=== PATIENT | female | born 2000 | race Caucasian/White ===

== ENCOUNTER 2019-10-25 15:17 | Emergency (ER) | payer OTHER ==
--- NOTE | 2019-10-25 15:35 | ED ---
Abdominal Pain/Female - HPI Summary HPI Summary: Patient complains of lower abdominal pain starting this morning at 10 AM, described as constant with spikes, radiating to lower back. Currently rated 5/ 10. Patient also complains of vaginal bleeding with use of 4 tampons since this morning. LMP 3 weeks ago, states he has usually bleeds minimally with her periods. Positive OCP. Negative test and negative urine at urgent care, was sent to the ED for further evaluation. Associated symptoms are mild nausea and some loose stool. Denies fever, cough, sore throat, CP, SOB, vomiting, change in urine, vaginal discharge or pain. Medical history is none. Abdominal surgical history is none. Tylenol taken at 10:30 AM with no relief of symptoms. - History of Current Complaint Chief Complaint: EDAbdPain Stated Complaint: ABD PAIN/CRAMPING PER PT Time Seen by Provider: 10/25/19 15:33 Hx Obtained From: Patient Onset/Duration: Sudden Onset, Lasting Hours Timing: Constant Severity Initially: Moderate Severity Currently: Moderate Pain Intensity: 6 Pain Scale Used: 0-10 Numeric Location: Suprapubic Radiates: Yes Radiates to: Back Character: Sharp, Cramping Aggravating Factor(s): Nothing Alleviating Factor(s): Nothing Associated Signs and Symptoms: Positive: Negative Allergies/Adverse Reactions: Allergies Allergy/AdvReac Type Severity Reaction Status Date / Time legumes Allergy Anaphylatic Verified 10/25/19 15:24 Shock nut - unspecified Allergy Anaphylatic Verified 10/25/19 15:24 Shock sesame seed Allergy Hives Verified 10/25/19 15:24 shellfish derived Allergy Hives Verified 10/25/19 15:24 Home Medications: Home Medications Norethindrone-E.estradiol-Iron [Microgestin Fe 1-20 mg-Mcg] 1 tab PO DAILY 10/25 [History Confirmed 10/25/19] busPIRone TAB* [Buspar TAB *] 15 mg PO DAILY 10/25/19 [History Confirmed ] PMH/Surg Hx/FS Hx/Imm Hx Endocrine/Hematology History: Denies: Hx Anticoagulant Therapy Cardiovascular History: Denies: Hx Pacemaker/ICD History: Denies: Hx Dialysis Sensory History: Denies: Hx Eye Prosthesis Opthamlomology History: Denies: Hx Legally Blind EENT History: Denies: Hx Deafness Neurological History: Denies: Hx Dementia Infectious Disease History: No Infectious Disease History: Denies: Traveled Outside the [place] in Last 30 Days - Family History Known Family History: Positive: Non-Contributory - Social History Alcohol Use: Occasionally Hx Substance Use: No Hx Tobacco Use: No Review of Systems Constitutional: Negative Eyes: Negative ENT: Negative Cardiovascular: Negative Respiratory: Negative Positive: Abdominal Pain, Nausea Genitourinary: Negative Musculoskeletal: Negative Skin: Negative Neurological: Negative Psychological: Normal All Other Systems Reviewed And Are Negative: Yes Physical Exam - Summary Physical Exam Summary: Abdomen soft nontender. Triage Information Reviewed: Yes Vital Signs On Initial Exam: Initial Vitals Temp Pulse Resp BP Pulse Ox 98.2 F 80 16 133/64 100 10/25/19 15:21 10/25/19 15:21 10/25/19 15:21 10/25/19 15:21 10/25/19 15:21 Vital Signs Reviewed: Yes Appearance: Positive: Well-Appearing Skin: Positive: Warm Head/Face: Positive: Normal Head/Face Inspection Eyes: Positive: Normal Neck: Positive: Supple Respiratory/Lung Sounds: Positive: Clear to Auscultation Cardiovascular: Positive: Normal Abdomen Description: Positive: Nontender Musculoskeletal: Positive: Normal Neurological: Positive: Normal Psychiatric: Positive: Normal AVPU Assessment: Alert - Hector Coma Scale Best Eye Response: 4 - Spontaneous Best Motor Response: 6 - Obeys Commands Best Verbal Response: 5 - Oriented Coma Scale Total: 15 Procedures - Sedation Patient Received Moderate/Deep Sedation with Procedure: No Diagnostics - Vital Signs Vital Signs Temp Pulse Resp BP Pulse Ox 10/25/19 15:21 98.2 F 80 16 133/64 100 - Laboratory Result Diagrams: 10/25/19 16:14 10/25/19 16:14 Lab Statement: Any lab studies that have been ordered have been reviewed, and results considered in the medical decision making process. Abdominal Pain Fem Course/Dx - Course Course Of Treatment: Patient complains of lower abdominal pain starting this morning at 10 AM, described as constant with spikes, radiating to lower back. Currently rated 5/10. Patient also complains of vaginal bleeding with use of 4 tampons since this morning. LMP 3 weeks ago, states he has usually bleeds minimally with her periods. Positive OCP. Negative test and negative urine at urgent care, was sent to the ED for further evaluation. Associated symptoms are mild nausea and some loose stool. Denies fever, cough, sore throat, CP, SOB, vomiting, change in urine, vaginal discharge or pain. Medical history is none. Abdominal surgical history is none. Tylenol taken at 10:30 AM with no relief of symptoms. Vital signs within normal limits. WBC 11.3. Labs otherwise unremarkable. Pelvic ultrasound negative. - Diagnoses Provider Diagnoses: Dysfunctional uterine bleeding Discharge ED - Sign-Out/Discharge Documenting (check all that apply): Patient Departure - Discharge Plan Condition: Stable Disposition: HOME Prescriptions: Ondansetron ODT TAB* [Zofran 4 MG Odt TAB*] 4 mg PO Q8H PRN 4 Days #14 tab.odt PRN Reason: Nausea Oxycodone HCl 5 mg PO BID 2 Days #4 tablet MDD 2 tabs Patient Education Materials: Dysfunctional Uterine Bleeding (ED) Referrals: [facility] - Jarrod MEMBRENO [Primary Care Provider] - Additional Instructions: Alternate ibuprofen 400 mg with Tylenol 650 mg every 3 hours as needed for pain. Take oxycodone for breakthrough pain. Takes Zofran for nausea as directed if needed. Follow-up with her PROCEDURES ANALYST for further evaluation of vaginal bleeding. Return to the ED for any concerning symptoms including severe bleeding, worsening abdominal pain, fever. - Billing Disposition and Condition Condition: STABLE Disposition: Home - Attestation Statements Provider Attestation: I was available for consult. This patient was seen by the GAVIN. The patient was not presented to, seen by, or examined by me. López Franklin MD
[2019-10-25 16:22] LABS: ABS Eosinophils 0.2 10^3/ul (0-0.6); Eosinophil % 2.2 %; Hematocrit 40 % (35-47); Hemoglobin 13.4 g/dL (12.0-16.0); Lymphocyte % 26.9 %; Mean Corpuscular HGB Conc 34 g/dL (31-36); Mean Corpuscular Hemoglobin 29 pg (27-31); Mean Corpuscular Volume 85 fL (80-97); Mean Platelet Volume 7.8 fL (7.4-10.4); Platelet Count 286 10^3/uL (150-450); Red Blood Count 4.67 10^6 /uL (3.70-4.87); Red Cell Distribution Width 14 % (10-15); White Blood Count 11.3 10^3/uL (3.5-10.8)
[2019-10-25 16:27] LABS: Urine Appearance Clear; Urine Bilirubin Negative (Negative); Urine Blood 2+ (Negative); Urine Color Colorless; Urine Glucose Negative (Negative); Urine Ketones Negative (Negative); Urine Nitrite Negative (Negative); Urine Protein Negative (Negative); Urine Specific Gravity 1.003 (1.010-1.030); Urine Urobilinogen Negative (Negative)
[2019-10-25 16:29] LABS: Urine Bacteria Absent (Absent); Urine Red Blood Cell Trace(0-2/hpf) (Absent); Urine White Blood Cell Trace(0-5/hpf) (Absent)
[2019-10-25 16:30] LABS: Albumin 4.1 g/dL (3.2-5.2); Anion Gap 8 mmol/L (2-11); CO2 Carbon Dioxide 23 mmol/L (22-32); Calcium 9.5 mg/dL (8.6-10.3); Chloride 105 mmol/L (101-111); Potassium 3.6 mmol/L (3.5-5.0); Sodium 136 mmol/L (135-145)
[2019-10-25 16:36] LABS: ALT 11 U/L (7-52); AST 15 U/L (13-39); Albumin/Globulin Ratio 1.2 (1-3); Alkaline Phosphatase 44 U/L (34-104); BUN/Creatinine Ratio 12.9 (8-20); Blood Urea Nitrogen 9 mg/dL (6-24); C Reactive Protein < 1.00 mg/L (<8.01); EGFR African American 129.1 (>60); EGFR Non-African American 106.7 (>60); Globulin 3.4 g/dL (2-4); Glucose 96 mg/dL (70-100); Total Protein 7.5 g/dL (6.4-8.9)
[2019-10-25 16:43] LABS: HCG Pregnancy < 0.60 mIU/mL
[2019-10-25] MEDS ORDERED: Ondansetron ODT TAB* 4 MG PO ONE (17:10)
[2019-10-25] MEDS ORDERED: Ketorolac TAB * 10 MG TAB PO ONE (17:10)
[2019-10-25 17:24] VITALS: BP 107/66
== END 2019-10-25 17:24 | disposition home or self-care (01) ==
LOC: ED 15:17
DX: N93.8 Other specified abnormal uterine and vaginal bleeding (principal); Z79.899 Other long term (current) drug therapy
CPT/HCPCS: 36415; 76856; 80053; 81003; 81015; 84702; 85025; 86140; 87086; 99282; A9270-GY